=== PATIENT | female | born 1995 | race Two or more races ===

== ENCOUNTER 2017-07-22 07:06 | Emergency (ER) | payer MEDICAID ==
[~2017-07-22] VITALS: Ht 147.3 cm; Wt 39.5 kg
[2017-07-22 07:11] VITALS: Ht 147.3 cm; Wt 39.5 kg
[2017-07-22 08:18] VITALS: BP 120/74
== END 2017-07-22 08:18 | disposition home or self-care (01) ==
LOC: ED 07:06
DX: L50.9 Urticaria, unspecified (principal)
CPT/HCPCS: J1200; J2930